=== PATIENT | female | born 1935 | race American Indian/Alaskan Native ===

== ENCOUNTER 2018-10-20 06:02 | Day surgery (SDC) | payer MEDICARE ==
[2018-10-20 07:08] LABS: Basophils % (Auto) 0.7 % (0.0-1.8); Eosinophils # (Auto) 0.2 K/mm3 (0.0-0.4); Eosinophils % (Auto) 4.7 % (0.0-4.3); Hematocrit 33.7 % (30.3-42.9); Hemoglobin 11.2 gm/dl (10.1-14.3); Lymphocytes # (Auto) 1.1 K/mm3 (1.2-5.4); Mean Corpuscular HGB Conc 33 % (30-34); Mean Corpuscular Volume 95 fl (79-97); Monocytes # (Auto) 0.5 K/mm3 (0.0-0.8); Monocytes % (Auto) 11.3 % (0.0-7.3); Platelet Count 223 K/mm3 (140-440); Red Blood Count 3.55 M/mm3 (3.65-5.03); Red Cell Distribution Width 15.7 % (13.2-15.2)
[2018-10-20 07:19] LABS: INR 0.94 (0.87-1.13)
[2018-10-20 07:40] LABS: BUN/Creatinine Ratio 21; Blood Urea Nitrogen 19 mg/dL (7-17); Calcium 10.4 mg/dL (8.4-10.2); Hemolysis Index 2
[2018-10-20] MEDS: NACL 0.9% 500 ML 500 ML IV SCH ×2 (08:01→09:30)
[2018-10-20] MEDS ORDERED: HEPARIN/NS 5000 UNIT/500ML(CATH LAB) 1,000 ML IR ONE (08:28)
[2018-10-20] MEDS ORDERED: HEPARIN 10,000 UNITS/10 ML ONE (08:29)
[2018-10-20] MEDS ORDERED: SUBLIMAZE ONE (08:29)
[2018-10-20] MEDS ORDERED: XYLOCAINE 2% INFILTRATI ONE (08:29)
[2018-10-20] MEDS ORDERED: CALAN ONE (08:29)
[2018-10-20] MEDS ORDERED: VERSED ONE (08:29)
[2018-10-20] MEDS ORDERED: NITROGLYCERIN SYRINGE 3 ML ONE (08:30)
--- NOTE | 2018-10-20 09:56 | Short Stay Summary ---
Short Stay Documentation Date of service: 10/20/18 - History H&P: obtained from office - Allergies and Medications Current Medications: Allergies shellfish derived Allergy (Severe, Verified 10/20/18 08:45) SWELLING OF THROAT AND NECK, HIVES pt stated throat felt like it was closing off Home Medications Medication Instructions Recorded Confirmed Last Taken Type Albuterol Sulfate [Ventolin HFA] 1 puff INHALATION DAILY 10/20/18 10/20/18 10/20/18 04:45 History 1 puff Atenolol [Tenormin] 100 mg PO DAILY 10/20/18 10/20/18 10/20/18 04:45 History 100mg AtorvaSTATin [Lipitor] 10 mg PO DAILY 10/20/18 10/20/18 10/20/18 04:45 History Brimonidine/Timolol 0.2-0.5% 1 drop INTRAOCULA DAILY 10/20/18 10/20/18 10/20/18 04:45 History [Combigan 0.2-0.5%] Cholecalciferol (Vitamin D3) 5,000 units PO HS 10/20/18 10/20/18 10/19/18 History [Vitamin D3] 5000 units Fish Oil 500 mg Softgel 1 tab PO HS 10/20/18 10/20/18 10/19/18 History 1 tab Fluticasone Propionate [Flovent 1 puff INHALATION BID 10/20/18 10/20/18 10/20/18 04:45 History Hfa] 1 puff Folic Acid 800 mg PO DAILY 10/20/18 10/20/18 10/19/18 History 800mg Furosemide [Lasix] 20 mg PO DAILY 10/20/18 10/20/18 10/19/18 History 20mg Hydralazine HCl 50 mg PO DAILY 10/20/18 10/20/18 10/20/18 04:45 History 50mg Latanoprost [Xalatan] 1 drop INTRAOCULA DAILY 10/20/18 10/20/18 10/20/18 04:45 History Losartan Potassium 100 mg PO DAILY 10/20/18 10/20/18 10/20/18 04:45 History 100mg Magnesium 250 mg PO DAILY 10/20/18 10/20/18 10/19/18 History 1 tab Multivit-Min/Iron/Folic/Lutein 1 tab PO HS 10/20/18 10/20/18 10/19/18 History [Centrum Silver Women Tablet] 1 tab amLODIPine [Norvasc] 10 mg PO DAILY 10/20/18 10/20/18 10/20/18 04:45 History metHOTREXate(DOSE WEEKLY ONLY) 7 tab PO QWEEK 10/20/18 10/20/18 10/16/18 History [metHOTREXate (DOSE WEEKLY ONLY)] predniSONE [Prednisone] 5 mg PO DAILY 10/20/18 10/20/18 10/20/18 04:45 History 5mg Active Medications Sodium Chloride (Nacl 0.9% 500 Ml) 500 mls @ 50 mls/hr IV DIRECT MARTIN Stop: 10/20/18 16:59 Last Admin: 10/20/18 09:30 Dose: 50 mls/hr Documented by: - Physical exam General appearance: no acute distress Integumentary: no rash HEENT: Atraumatic Lungs: Clear to auscultation Breasts: deferred Heart: Regular rate Gastrointestinal: normal Female Genitourinary: deferred Rectal Exam: deferred Extremities: no ischemia Neurological: Normal gait - Brief post op/procedure progress note Date of procedure: 10/20/18 Pre-op diagnosis: Chest Pain Post-op diagnosis: same Procedure: LHC and LV gram Anesthesia: MAC Findings: See report Surgeon: AJAY CURRY Estimated blood loss: none Pathology: none Condition: stable - Hospital course Hospital course: Uneventful - Disposition Condition at discharge: Good Disposition: DC-01 TO HOME OR SELFCARE Short Stay Discharge Plan Activity: advance as tolerated Weight Bearing Status: Partial Weight Bearing Diet: low fat, low cholesterol, low salt Wound: keep clean and dry Follow up with: RENE STEVENS MD [Primary Care Provider] - 7 Days
--- NOTE | 2018-10-20 10:06 | Cardiac Catherization Report ---
LEFT HEART CATHETERIZATION ORDERING PHYSICIAN: Lolly Bishop MD INDICATION: Chest pain, abnormal myocardial perfusion scan, low risk myocardial perfusion study. PROCEDURES PERFORMED: 1. Selective left and right coronary angiography. 2. Left ventriculography. DESCRIPTION OF PROCEDURE: After obtaining the consent, the patient was draped using sterile technique. A 2% lidocaine was injected into the right wrist. A 5-American vascular sheath was inserted into the right radial artery. A 5-American JL3.5 catheter was used to selectively engage the left coronary artery. A 5-American JR4 catheter was used to selectively engage the right coronary artery. A 5-American JR4 catheter was used to hand inject the left ventriculogram. No complications occurred during the procedure. Hemostasis was achieved at the end of the procedure using manual pressure. SPECIMEN REMOVED: None. ESTIMATED BLOOD LOSS: Minimal. SEDATION ADMINISTERED: 1 mg of IV Versed and 25 mcg of IV fentanyl. Physician patient [id number] sedation start time is 9:37 a.m. Physician patient [id number] sedation stop time is 9:44 a.m. Total sedation time is 7 minutes. FINDINGS: HEMODYNAMICS: Aortic pressure is 96/47. LV systolic pressure 104 mmHg, LV end diastolic pressure 15 mmHg. No significant gradient noted across left ventricular outflow tract. CARDIAC STRUCTURES: The left ventricular cavity appears to be normal in size. There is moderate global left ventricular hypokinesis and left ventricular ejection fraction is estimated at 40%. CORONARY ANATOMY: 1. The left main has mild luminal irregularities. 2. Left anterior descending artery has mild luminal irregularities with less than or equal to 10% luminal stenosis. 3. The left circumflex artery has mild diffuse nonobstructive luminal irregularities with less than or equal to 10% luminal stenosis. There is evidence of a focal 50-60% stenosis noted in the distal circumflex artery. The left circumflex artery is a dominant vessel. 4. The right coronary artery is a small nondominant vessel with 10% diffuse nonobstructive luminal irregularities. IMPRESSION: 1. Moderate nonobstructive coronary artery disease noted in the distal left circumflex artery with approximately 50-60% luminal stenosis. 2. Moderate global left ventricular hypokinesis with an ejection fraction estimated at 40%. 3. LVEDP measured at 15 mmHg. RECOMMENDATIONS: Continue aggressive medical therapy and risk factor modification. Follow up with referring rehab spec. [facility]# [id number] SUSI/JASON
[2018-10-20 13:06] VITALS: BP 138/53
== END 2018-10-20 13:40 | disposition home or self-care (01) ==
LOC: CATHLABREC 06:02
PROVIDERS: ATTEND Internal Medicine
DX: I25.10 Atherosclerotic heart disease of native coronary artery without angina pectoris (principal); E78.00 Pure hypercholesterolemia, unspecified; I10 Essential (primary) hypertension; K21.9 Gastro-esophageal reflux disease without esophagitis; Z90.710 Acquired absence of both cervix and uterus; M19.90 Unspecified osteoarthritis, unspecified site; Z98.890 Other specified postprocedural states; Z79.899 Other long term (current) drug therapy; Z79.01 Long term (current) use of anticoagulants; Z98.42 Cataract extraction status, left eye; Z98.41 Cataract extraction status, right eye; Z91.013 Allergy to seafood
CPT/HCPCS: 36415; 80048; 85025; 85610; 85730; 93005; 93010; 93458; C1894; J1644; J2250; J3010; J7040; Q9967

== ENCOUNTER 2020-05-26 10:48 | Outpatient (CLI) | payer MEDICARE ==
--- NOTE | 2020-05-26 15:43 | Mammography Report ---
DIGITAL SCREENING MAMMOGRAM WITH CAD, 05/26/2020 INDICATION: Routine screening mammography. TECHNIQUE: Digital bilateral 2D mammography was obtained in the craniocaudal and mediolateral obliq ue projections. This examination was interpreted with the benefit of Computer-Aided Detection analysi s. COMPARISON: Prior mammogram 06/07/2018 FINDINGS: Breast Density: The breasts are heterogeneously dense, which may obscure small masses. There is no evidence of dominant mass, suspicious calcifications or architectural distortion in eithe r breast. There has been no significant change compared with the prior examination. IMPRESSION: Follow up recommendation: Routine yearly BI-RADS Category 1: Negative. A "normal" or negative report should not discourage follow up or biopsy of a clinically significant f inding. A written summary of these findings will be mailed to the patient. The patient will be entered into a mammography reporting system which will generate a reminder letter for the patient's next appointmen t at the appropriate interval. The [employer] recommends yearly mammograms starting at age 40 and continuing as l zina as a woman is in good health. Breast MRI is recommended for women with an approximate 20-25% or greater lifetime risk of breast cancer, including women with a strong family history of breast or ova tati cancer or who have been treated for Hodgkin's disease. Signer Name: Kamilla Sy MD Signed: 05/26/2020 3:38 PM Workstation Name: [email or web address]
== END 2020-05-26 10:49 | disposition home or self-care (01) ==
LOC: MAMMO 10:48
PROVIDERS: ATTEND Family Medicine
DX: Z12.31 Encounter for screening mammogram for malignant neoplasm of breast (principal)
CPT/HCPCS: 77067

== ENCOUNTER 2021-05-27 10:18 | Outpatient (CLI) | payer MEDICARE ==
--- NOTE | 2021-05-27 14:57 | Mammography Report ---
DIGITAL SCREENING MAMMOGRAM WITH CAD, 05/27/2021 CLINICAL INFORMATION / INDICATION: Routine screening mammography. SCREENING MAMMOGRAM TECHNIQUE: Digital bilateral 2D mammography was obtained in the craniocaudal and mediolateral obliqu e projections. This examination was interpreted with the benefit of Computer-Aided Detection analysis . COMPARISON: 06/07/2018 and 05/26/2020. FINDINGS: Breast Density: The breasts are heterogeneously dense, which may obscure small masses. No dominant mass, suspicious calcifications, or architectural distortion in either breast. IMPRESSION: No mammographic evidence of malignancy. Follow up recommendation: Routine yearly BI-RADS Category 1: Negative. A "normal" or negative report should not discourage follow up or biopsy of a clinically significant f inding. A written summary of these findings will be mailed to the patient. The patient will be entered into a mammography reporting system which will generate a reminder letter for the patient's next appointmen t at the appropriate interval. The [employer] recommends yearly mammograms starting at age 40 and continuing as l zina as a woman is in good health. Breast MRI is recommended for women with an approximate 20-25% or greater lifetime risk of breast cancer, including women with a strong family history of breast or ova tati cancer or who have been treated for Hodgkin's disease. Signer Name: Praful Ospina MD Signed: 05/27/2021 2:52 PM Workstation Name: [email or web address]
== END 2021-05-27 10:19 | disposition home or self-care (01) ==
LOC: MAMMO 10:18
PROVIDERS: ATTEND Internal Medicine
DX: Z12.31 Encounter for screening mammogram for malignant neoplasm of breast (principal)
CPT/HCPCS: 77067